=== PATIENT | male | born 1955 | race Caucasian/White ===

== ENCOUNTER → 2022-05-07 | Outpatient (CLI) | payer OTHER | END | disposition home or self-care (01) | LOC: RAH 14:47 | PROVIDERS: ATTEND Orthopaedic Surgery Sports Medicine | DX: M17.11 Unilateral primary osteoarthritis, right knee (principal) | CPT/HCPCS: 73700 ==

== ENCOUNTER 2022-05-13 06:20 | Observation (INO) | payer OTHER ==
[2022-05-10 11:23] LABS: BASOPHILS % (AUTO) 0.9 % (0.0-5.0); EOSINOPHILS % (AUTO) 2.9 % (0.0-8.0); HEMATOCRIT 47.1 % (42-54); LYMPHOCYTES % (AUTO) 24.6 % (21.0-51.0); MEAN CORPUSCULAR HGB CONC 33.3 g/dL (32.0-36.0); MONOCYTES % (AUTO) 10.1 % (3.0-13.0); NEUTROPHILS % (AUTO) 61.2 % (40.0-77.0); PLATELET COUNT (AUTO) 477 K/uL (130-400); RED BLOOD CELL COUNT(AUTO) 5.61 MIL/uL (4.50-6.20); RED CELL DISTRIBUTION WIDTH 13.7 % (11.0-15.5)
[2022-05-10 11:39] LABS: INR 0.93 (0.85-1.15); PROTHROMBIN TIME 10.2 SEC (9.6-11.6)
[2022-05-10 11:40] LABS: PARTIAL THROMBOPLASTIN TIME 27.1 SEC (26.3-35.5)
[2022-05-10 14:53] VITALS: BP 136/92
[~2022-05-13] VITALS: Ht 177.8 cm; Wt 111.9 kg
[2022-05-13] VITALS (24 sets, daily range): BP systolic 135–173; BP diastolic 57–108
[~2022-05-13 06:20] MED LIST: ASPI-888 PO; ATOR40TA71 PO; LOSA100T58 PO; METO-408 PO; MULT-1367 PO; NITR0.4T50 SL; TRANEXAMIC ACID 1000MG/10ML ONE
[2022-05-13] MEDS ORDERED: VANCOMYCIN 1G VIAL ONE (06:21)
[2022-05-13] MEDS ORDERED: LACTATED RINGERS 1000ML 1,000 ML IV ONE (06:28)
[2022-05-13] MEDS ORDERED: CEFAZOLIN SODIUM 2 GM VIAL ONE (06:28)
[2022-05-13] MEDS ORDERED: ROCURONIUM 10MG/1ML SYR 10 MG/ML ML ONE ×2 (07:06→08:19)
[2022-05-13] MEDS ORDERED: ONDANSETRON 4MG INJ ONE (07:06)
[2022-05-13] MEDS ORDERED: PROPOFOL 10 MG/ML 20ML VIAL IV ONE (07:06)
[2022-05-13] MEDS ORDERED: MIDAZOLAM HCL 1 MG/ML 2ML VIAL ONE (07:07)
[2022-05-13] MEDS ORDERED: FENTANYL CITRATE PF 50 MCG/1 ML 2ML VIAL ONE ×3 (07:07→10:04)
[2022-05-13 07:16] LABS: CREATININE 1.1 mg/dL (0.5-1.5); POTASSIUM 4.2 mmol/L (3.5-5.1)
[2022-05-13] MEDS ORDERED: CEFAZOLIN SODIUM 2 GM VIAL IVPB ONE (07:52)
[2022-05-13] MEDS ORDERED: PHENYLEPHRINE HCL 10 MG/ML 1ML VIAL IV ONE (08:07)
[2022-05-13] MEDS ORDERED: TRANEXAMIC ACID 1000MG/10ML IV ONE (08:22)
[2022-05-13] MEDS ORDERED: EPHEDRINE SULFATE 50 MG/ML AMPULE ONE (08:47)
[2022-05-13] MEDS ORDERED: ALBUTEROL INHALER 90MCG/INH IH ONE (08:51)
[2022-05-13 09:00] LABS: ABG BASE EXCESS -0.6 mmol/L (-2.0-3.0); ABG HCO3 24.8 mmol/L (21.0-28.0); ABG OXYGEN SATURATION 98.7 % (95.0-99.0); ABG PCO2 43 mmHg (35-48)
[2022-05-13] MEDS ORDERED: DEXAMETHASONE SOD PHOSPHATE 10MG/ML 1ML VIAL ONE (09:13)
[2022-05-13] MEDS ORDERED: NEOSTIGMINE 5MG/5ML SYR IV ONE (09:52)
[2022-05-13] MEDS ORDERED: GLYCOPYRROLATE 1 MG/5 ML SYRINGE ONE (09:52)
[2022-05-13] MEDS ORDERED: KETOROLAC 30MG VIAL (30MG/ML) ONE (09:58)
[2022-05-13] MEDS ORDERED: KCL 20 MEQ ERTAB PO PRN (10:30)
[2022-05-13] MEDS ORDERED: POTASSIUM CHLORIDE 20MEQ/100ML 100 ML IV PRN (10:30)
[2022-05-13] MEDS ORDERED: POTASSIUM CHLORIDE 10% ELIXIR 20 MEQ/15 ML UDCUP PO PRN (10:30)
[2022-05-13] MEDS ORDERED: HYDROCODONE/ACETAMINOPHEN 5/325 MG TAB PO PRN (10:30)
[2022-05-13] MEDS ORDERED: MORPHINE 4 MG SYG IVP PRN (10:30)
[2022-05-13] MEDS ORDERED: HYDROCODONE/ACETAMINOPHEN 10/325 MG TAB PO PRN (10:30)
[2022-05-13] MEDS ORDERED: LIDOCAINE HCL-MPF 1% 2ML VIAL IV PRN (10:30)
[2022-05-13] MEDS: ACETAMINOPHEN 1,000 MG/100 ML VIAL IV SCH ×3 (10:30→23:03)
[2022-05-13] MEDS ORDERED: ONDANSETRON 4MG INJ IVP PRN (10:30)
[2022-05-13] MEDS: 0.9%NACL 1000ML 1,000 ML IV SCH ×2 (12:14→20:01)
[2022-05-13] MEDS: TRAMADOL HCL 50 MG TABLET PO SCH ×3 (12:28→23:03)
[2022-05-13] MEDS ORDERED: NITROGLYCERIN 0.4 MG SL TAB SL PRN (12:30)
[2022-05-13] MEDS: IBUPROFEN 800MG + NS 250ML IV SCH ×2 (14:37→20:01)
[2022-05-13] MEDS: CEFAZOLIN SODIUM 2 GM VIAL IVP SCH ×2 (14:37→23:03)
[2022-05-13] MEDS: CELECOXIB 200 MG CAP PO SCH (20:01)
[2022-05-13] MEDS: ATORVASTATIN 40 MG TABLET PO SCH (20:01)
[2022-05-14] VITALS: BP 146/93
[2022-05-14 04:00] VITALS: BP 108/75
[2022-05-14 04:30] LABS: HEMATOCRIT 42.5 % (42-54); MEAN CORPUSCULAR HGB CONC 32.7 g/dL (32.0-36.0); MEAN CORPUSCULAR VOLUME 85.7 fL (79-99); RED BLOOD CELL COUNT(AUTO) 4.96 MIL/uL (4.50-6.20); WHITE BLOOD COUNT (AUTO) 18.7 K/uL (4.8-10.8)
[2022-05-14 04:41] LABS: CREATININE 1.3 mg/dL (0.5-1.5); POTASSIUM 4.1 mmol/L (3.5-5.1)
[2022-05-14] MEDS: TRAMADOL HCL 50 MG TABLET PO SCH ×4 (05:00→23:27)
[2022-05-14] MEDS: IBUPROFEN 800MG + NS 250ML IV SCH (05:01)
[2022-05-14] MEDS: 0.9%NACL 1000ML 1,000 ML IV SCH (06:14)
[2022-05-14 08:00] VITALS: BP 123/80
[2022-05-14] MEDS: LOSARTAN 100 MG TABLET PO SCH (08:58)
[2022-05-14] MEDS: POLYETHYLENE GLYCOL 3350 17 GM POWD.PACK PO SCH (08:58)
[2022-05-14] MEDS: ASPIRIN 325MG TAB PO SCH (08:58)
[2022-05-14] MEDS: METOPROLOL SUCCINATE 25 MG TAB.SR.24H PO SCH (08:58)
[2022-05-14] MEDS: MULTIVITAMIN TABLET PO SCH (08:58)
[2022-05-14] MEDS: CELECOXIB 200 MG CAP PO SCH ×2 (08:58→20:52)
[2022-05-14 12:00] VITALS: BP 117/60
[2022-05-14 16:00] VITALS: BP 130/74
[2022-05-14 20:00] VITALS: BP 132/66
[2022-05-14] MEDS: ATORVASTATIN 40 MG TABLET PO SCH (20:53)
[2022-05-15] VITALS: BP 129/81
[2022-05-15 04:00] VITALS: BP 108/63
[2022-05-15] MEDS: TRAMADOL HCL 50 MG TABLET PO SCH (06:54)
[2022-05-15 07:56] VITALS: BP 114/56
[2022-05-15] MEDS: ASPIRIN 325MG TAB PO SCH (09:34)
[2022-05-15] MEDS: POLYETHYLENE GLYCOL 3350 17 GM POWD.PACK PO SCH (09:34)
[2022-05-15] MEDS: CELECOXIB 200 MG CAP PO SCH (09:34)
[2022-05-15] MEDS: METOPROLOL SUCCINATE 25 MG TAB.SR.24H PO SCH (09:34)
[2022-05-15] MEDS: LOSARTAN 100 MG TABLET PO SCH (09:34)
[2022-05-15] MEDS: MULTIVITAMIN TABLET PO SCH (09:34)
[2022-05-15 11:37] VITALS: BP 102/62
[2022-05-16] MEDS ORDERED: BISACODYL 10 MG SUPP.RECT RC PRN (10:30)
== END 2022-05-15 15:45 | disposition home or self-care (01) ==
LOC: DAHIP 06:20 → EDSTATUS 07:30 → 4DH 12:14
PROVIDERS: ADMIT Orthopaedic Surgery Sports Medicine; ATTEND Orthopaedic Surgery Sports Medicine
DX: M17.11 Unilateral primary osteoarthritis, right knee (principal); Z20.822 Contact with and (suspected) exposure to COVID-19; I10 Essential (primary) hypertension; M25.561 Pain in right knee; G89.29 Other chronic pain; Z79.899 Other long term (current) drug therapy; Z90.49 Acquired absence of other specified parts of digestive tract; Z98.890 Other specified postprocedural states
CPT/HCPCS: 85025; 85610; 85730; 87426; 36415 ×3; 93005; 27447; 96376; 96365; 96366; 96375 ×2; 96367; 82435; 82947; 84132; 84295; 80048 ×2; 82803; 85018; 83605; 71045; 73560 ×2; 97161; 97039 ×3; 97530 ×5; 36600; 85027; 97116 ×4; S2900; G0378 ×48; G0379; A4663; J7030; J7120; J3370; J3010 ×3; J3490 ×4; J1100; J2710; J2250; J2704; J2405; J1885; J2370; J1741 ×2; J0690 ×4; A6223; A4649; A5120; A4215; A4223; A4222; A4221; C1776; C1713 ×2; A4606; J2270; 94760